=== PATIENT | female | born 1965 | race Caucasian/White ===

== ENCOUNTER 2016-07-18 09:37 | Day surgery (SDC) | payer OTHER ==
[~2016-07-18] VITALS: Ht 152.4 cm; Wt 108.0 kg
[~2016-07-18 09:37] MED LIST: BUDE8.435 NS; Sodium Chloride LOK Flush 10 mL Syringe IV PRN; VENL75CA95 PO; fentaNYL-PF 50 mCg/mL 2 mL Inj IVPUSH PRN
[2016-07-18 10:06] VITALS: BP 111/81; PULSE 62; RESP 16; O2SAT 99
[2016-07-18] MEDS ORDERED: 0.9% Sodium Chloride 1,000 ML ONE (10:30)
--- NOTE | 2016-07-18 11:46 | PCM.ENDCOL ---
Colonoscopy Date of Service: Jul 18, 2016 Physician Fernando Nunez MD Pre Procedure Diagnosis: Screening colon cancer Post Procedure Dx & Findings: Polyp hemorrhoids diverticuli Procedure Colonoscopy Prep adequate Withdrawal 11 minutes PROCEDURE IN DETAIL: After unremarkable rectal examination Olympus video colonoscope was inserted into patient's anal canal. It was advanced to cecum. Landmarks were identified including the ileocecal valve and the appendiceal orifice. Scope was withdrawn systematically. The mucosa of the cecum, ascending, transverse, descending, sigmoid, rectal mucosa lined with whitish, pink, smooth, glistening, normal-appearing mucosa, normal fine branching, underlying vascularity, normal haustra. The patient tolerated procedure and was transported to observation area. In the cecum, there was a 2 mm polyp which was removed completely using cold snare. In the rectosigmoid junction there was 1 cm polyp which was removed completely using hot snare. One hemostatic clip deployed. Diverticula noted in the sigmoid colon few and small in size. In the rectum retroflexion was done which showed hemorrhoids anal canal as inspected carefully and the way out and hemorrhoids noted. Impression Polyp 2 status post complete removal Hemorrhoids Diverticula Recommendation Repeat colonoscopy 5 years Diverticular diet Presedation Assessment Risks and Benefits Informed consent was obtained from the patient after all risks and benefits including but not limited to drug reaction, infection, pain, bleeding, perforation, as well as alternatives were discussed. Patient monitoring Continuous pulse oximetry, cardiac monitoring, blood pressure monitoring, IV access, and oxygen at 2L per nasal cannula. Periprocedural Fentanyl: Fentanyl 125mcg Incrementally Midazolam: Midazolam 6mg Incrementally Complications There were no periprocedural complications identified. Post Procedure Plan Post Procedure Recommendations 1. Restrict activities today. 2. Resume normal activities in the morning. 3. Resume medications. 4. Patient informed of normal post procedure side effects as bloating, drowsiness, blood streaking in the stool. 5. average risk CRCS. If colon polyps come back as: -Hyperplastic- can repeat colonoscopy in 10 years -Tubular adenoma- repeat colonoscopy in 5 years -Tubulovillous/villous adenoma- repeat colonoscopy in 3 years -If any dysplasia- return to clinic as soon as possible 6. Please don't hesitate to call me with any questions. Fernando Nunez MD Jul 18, 2016 11:46
[2016-07-18 11:50] VITALS: BP 112/87; PULSE 69; RESP 16; O2SAT 99
[2016-07-18 12:00] VITALS: BP 122/85; PULSE 73; RESP 16; O2SAT 99
[2016-07-18 12:10] VITALS: BP 127/80; PULSE 65; RESP 16; O2SAT 100
--- NOTE | 2016-07-22 10:08 | PATH ---
SURGICAL PATHOLOGY Attending Physician:Fernando Nunez M.D. CASE STATUS: Signed Out PATIENT NAME: BRIAN DUMAS PID: [id number] : 1965 DATE COLLECTED:07/18/2016 20:27 SPECIMEN: 1: Colon, Biopsy 2: Rectum, Biopsy CLINICAL HISTORY: 1). CECUM POLYP 2). RECTAL POLYP FINAL DIAGNOSIS: 1.CECUM POLYP: SESSILE SERRATED ADENOMA. 2.RECTAL POLYP: TUBULAR ADENOMA. ICD10 CODE D12.0 GROSS DESCRIPTION: The specimen is received in two formalin filled containers labeled with the patient's name. 1). The specimen is sublabeled "cecum polyp" and consists of a 0.4 x 0.3 x 0.2 CM portion of tissue which is entirely submitted in cassette 1A. 2). The specimen is sublabeled "rectal polyp" and consists of a 0.6 x 0.6 x 0.5 CM portion of tissue which is entirely submitted in cassette 2A. 07/18/2016 DAC MICRO DESCRIPTION: See diagnosis. ICD-9 CODES: CPT CODES: 1: 88645 2: 18262 Electronically Signed Out Amish Desouza MD [facility] [address], [place] [address] Technical component performed at [facility], [facility] [address], [place], [address]
== END 2016-07-18 23:59 | disposition home or self-care (01) ==
LOC: END 09:37
PROVIDERS: ATTEND Internal Medicine
DX: Z12.11 Encounter for screening for malignant neoplasm of colon (principal); D12.0 Benign neoplasm of cecum; D12.8 Benign neoplasm of rectum; K57.90 Diverticulosis of intestine, part unspecified, without perforation or abscess without bleeding; K64.9 Unspecified hemorrhoids
CPT/HCPCS: 45385; G0500; J2250; J3010; J7030